=== PATIENT | male | born 1950 | race Caucasian/White ===

== ENCOUNTER 2016-11-08 10:45 | Outpatient (RCR) | payer MEDICARE ==
[~2016-11-08] VITALS: Ht 180.3 cm; Wt 72.6 kg
[~2016-11-08 10:45] MED LIST: Excedrin Migraine tab ORAL PRN
[2016-11-08] MEDS ORDERED: Methohexital Sodium Syr 100mg/10ml IVP ONE (10:46)
[2016-11-08] MEDS ORDERED: NS 550ML IV ONE (10:46)
[2016-11-08] MEDS ORDERED: Succinylcholine 20mg/ml 10ml vial ONE (10:46)
[2016-11-08] MEDS ORDERED: Excedrin Migraine tab ONE (10:46)
== END 2016-11-28 | disposition home or self-care (01) ==
LOC: ECT 10:45
DX: F33.2 Major depressive disorder, recurrent severe without psychotic features (principal); F41.9 Anxiety disorder, unspecified; I48.92 Unspecified atrial flutter; M19.90 Unspecified osteoarthritis, unspecified site
CPT/HCPCS: 90870; J0330; J7040

== ENCOUNTER 2016-12-15 05:04 | Outpatient (RCR) | payer MEDICARE ==
[~2016-12-15] VITALS: Ht 180.3 cm; Wt 72.6 kg
[2016-12-15] MEDS ORDERED: Succinylcholine 20mg/ml 10ml vial ONE (05:05)
[2016-12-15] MEDS ORDERED: NS 550ML IV ONE (05:05)
[2016-12-15] MEDS ORDERED: Excedrin Migraine tab ONE (05:05)
[2016-12-15] MEDS ORDERED: Methohexital Sodium Syr 100mg/10ml IVP ONE (05:05)
[2016-12-15] MEDS ORDERED: Excedrin Migraine tab ORAL PRN (10:11)
== END 2016-12-29 | disposition home or self-care (01) ==
LOC: ECT 05:04
DX: F33.2 Major depressive disorder, recurrent severe without psychotic features (principal); Z88.2 Allergy status to sulfonamides
CPT/HCPCS: 90870; J0330; J7040

== ENCOUNTER 2017-01-22 05:16 | Outpatient (RCR) | payer MEDICARE ==
[~2017-01-22] VITALS: Ht 180.3 cm; Wt 72.6 kg
[2017-01-22] MEDS ORDERED: Excedrin tab (non formulary) ONE (05:17)
[2017-01-22] MEDS ORDERED: Succinylcholine 20mg/ml 10ml vial ONE (05:17)
[2017-01-22] MEDS ORDERED: Methohexital Sodium Syr 100mg/10ml IVP ONE (05:17)
[2017-01-22] MEDS ORDERED: NS 550ML IV ONE (05:17)
[2017-01-22] MEDS ORDERED: Methohexital Sodium 500mg Vial IVP ONE (05:17)
[2017-01-22] MEDS ORDERED: Atropine Sulfate 0.4mg/ml inj IVP PRN (11:13)
[2017-01-22] MEDS ORDERED: Excedrin Migraine tab ORAL PRN (11:13)
== END 2017-01-28 | disposition home or self-care (01) ==
LOC: ECT 05:16
DX: F33.2 Major depressive disorder, recurrent severe without psychotic features (principal); F41.9 Anxiety disorder, unspecified; I48.92 Unspecified atrial flutter; M19.90 Unspecified osteoarthritis, unspecified site
CPT/HCPCS: 90870; J0330; J7040; J3490

== ENCOUNTER 2017-03-02 06:49 | Outpatient (RCR) | payer MEDICARE ==
[~2017-03-02] VITALS: Ht 180.3 cm; Wt 72.6 kg
[2017-03-02] MEDS ORDERED: Excedrin Migraine tab ONE (06:50)
[2017-03-02] MEDS ORDERED: Methohexital Sodium Syr 100mg/10ml IVP ONE (06:50)
[2017-03-02] MEDS ORDERED: Succinylcholine 20mg/ml 10ml vial ONE (06:50)
[2017-03-02] MEDS ORDERED: NS 550ML IV ONE (06:50)
[2017-03-02] MEDS ORDERED: Atropine Sulfate 0.4mg/ml inj IVP PRN (10:15)
== END 2017-03-30 | disposition home or self-care (01) ==
LOC: ECT 06:49
DX: F33.2 Major depressive disorder, recurrent severe without psychotic features (principal); F41.9 Anxiety disorder, unspecified; I48.92 Unspecified atrial flutter; M19.90 Unspecified osteoarthritis, unspecified site
CPT/HCPCS: 90870; J0330; J7040

== ENCOUNTER 2017-04-11 07:46 | Outpatient (RCR) | payer MEDICARE ==
[~2017-04-11] VITALS: Ht 180.3 cm; Wt 72.6 kg
[2017-04-11] MEDS ORDERED: Excedrin Migraine tab ONE (07:47)
[2017-04-11] MEDS ORDERED: Succinylcholine 20mg/ml 10ml vial ONE (07:47)
[2017-04-11] MEDS ORDERED: Methohexital Sodium Syr 100mg/10ml IVP ONE (07:47)
[2017-04-11] MEDS ORDERED: NS 550ML IV ONE (07:47)
[2017-04-11] MEDS ORDERED: Excedrin Migraine tab ORAL PRN (10:32)
== END 2017-04-30 | disposition home or self-care (01) ==
LOC: ECT 07:46
DX: F33.2 Major depressive disorder, recurrent severe without psychotic features (principal)
CPT/HCPCS: 90870; J0330; J7040

== ENCOUNTER 2017-05-21 08:18 | Outpatient (RCR) | payer MEDICARE ==
[~2017-05-21] VITALS: Ht 180.3 cm; Wt 72.6 kg
[2017-05-21] MEDS ORDERED: Succinylcholine 20mg/ml 10ml vial ONE (08:19)
[2017-05-21] MEDS ORDERED: Excedrin Migraine tab ONE (08:19)
[2017-05-21] MEDS ORDERED: NS 550ML IV ONE (08:19)
[2017-05-21] MEDS ORDERED: Methohexital Sodium Syr 100mg/10ml IVP ONE (08:19)
[2017-05-21] MEDS ORDERED: Excedrin Migraine tab ORAL PRN (10:41)
== END 2017-05-31 | disposition home or self-care (01) ==
LOC: ECT 08:18
DX: F33.2 Major depressive disorder, recurrent severe without psychotic features (principal)
CPT/HCPCS: 90870; J0330; J7040

== ENCOUNTER → 2019-12-31 | Outpatient (CLI) | payer MEDICARE | END | disposition home or self-care (01) | LOC: ECT 12:22 | DX: F33.2 Major depressive disorder, recurrent severe without psychotic features (principal); F41.9 Anxiety disorder, unspecified; I12.9 Hypertensive chronic kidney disease with stage 1 through stage 4 chronic kidney disease, or unspecified chronic kidney disease; N18.9 Chronic kidney disease, unspecified; G20 Parkinson's disease; E03.9 Hypothyroidism, unspecified; I70.0 Atherosclerosis of aorta; Z79.82 Long term (current) use of aspirin; Z79.899 Other long term (current) drug therapy ==

== ENCOUNTER 2020-01-14 05:12 | Outpatient (RCR) | payer MEDICARE ==
[~2020-01-14] VITALS: Ht 180.3 cm; Wt 68.0 kg
[2020-01-14] MEDS ORDERED: Methohexital Sodium Syr 100mg/10ml IVP ONE (05:13)
[2020-01-14] MEDS ORDERED: NS 500ML ONE (05:13)
[2020-01-14] MEDS ORDERED: Succinylcholine 20mg/ml 10ml vial ONE (05:13)
[2020-01-14 10:43] VITALS: BP 169/93
[2020-01-14] MEDS ORDERED: Excedrin Migraine tab ORAL PRN (10:55)
[2020-01-14 10:56] VITALS: BP 147/76
[2020-01-14 11:01] VITALS: BP 164/67
[2020-01-14 11:06] VITALS: BP 156/76
[2020-01-14 11:11] VITALS: BP 158/73
[2020-01-14 11:56] VITALS: BP 169/93
== END 2020-01-29 | disposition home or self-care (01) ==
LOC: ECT 05:12
DX: F33.2 Major depressive disorder, recurrent severe without psychotic features (principal); E03.9 Hypothyroidism, unspecified; G20 Parkinson's disease; N40.0 Benign prostatic hyperplasia without lower urinary tract symptoms; I12.9 Hypertensive chronic kidney disease with stage 1 through stage 4 chronic kidney disease, or unspecified chronic kidney disease; N18.3 Chronic kidney disease, stage 3 (moderate); I70.0 Atherosclerosis of aorta; J32.9 Chronic sinusitis, unspecified; L82.1 Other seborrheic keratosis
CPT/HCPCS: 90870; J0330; J7040

== ENCOUNTER 2020-02-25 05:56 | Outpatient (RCR) | payer MEDICARE ==
[~2020-02-25] VITALS: Ht 30.5 cm; Wt 0.5 kg
[2020-02-25] MEDS ORDERED: Succinylcholine 20mg/ml 10ml vial ONE (05:57)
[2020-02-25] MEDS ORDERED: Methohexital Sodium Syr 100mg/10ml IVP ONE (05:57)
[2020-02-25] MEDS ORDERED: NS 500ML ONE (05:57)
[2020-02-25 10:38] VITALS: BP 147/80
[2020-02-25 10:59] VITALS: BP 136/65
[2020-02-25] MEDS ORDERED: Lidocaine 2% 100mg/5ml Carp IV PRN (10:59)
[2020-02-25] MEDS ORDERED: Atropine Sulfate 0.4mg/ml inj IVP PRN (10:59)
[2020-02-25 11:04] VITALS: BP 130/65
[2020-02-25 11:09] VITALS: BP 133/66
[2020-02-25 11:14] VITALS: BP 131/51
== END 2020-02-29 | disposition home or self-care (01) ==
LOC: ECT 05:56
DX: F33.2 Major depressive disorder, recurrent severe without psychotic features (principal)
CPT/HCPCS: 90870; J0330; J7040

== ENCOUNTER 2020-04-05 06:10 | Outpatient (RCR) | payer MEDICARE ==
[~2020-04-05] VITALS: Ht 180.3 cm; Wt 68.0 kg
[~2020-04-05 06:10] MED LIST changes: -Excedrin Migraine tab ORAL PRN; +Methohexital Sodium Syr 100mg/10ml IVP ONE; +NS 500ML ONE; +Succinylcholine 20mg/ml 10ml vial ONE
[2020-04-05] MEDS ORDERED: Succinylcholine 20mg/ml 10ml vial ONE (06:11)
[2020-04-05] MEDS ORDERED: Methohexital Sodium Syr 100mg/10ml IVP ONE (06:11)
[2020-04-05] MEDS ORDERED: NS 500ML ONE (06:11)
[2020-04-05 11:25] VITALS: BP 155/81
[2020-04-05] MEDS ORDERED: Atropine Sulfate 0.4mg/ml inj IVP PRN (11:39)
[2020-04-05] MEDS ORDERED: Lidocaine 2% 100mg/5ml Carp IV PRN (11:39)
[2020-04-05 11:40] VITALS: BP 135/63
[2020-04-05 11:45] VITALS: BP 139/68
[2020-04-05 11:50] VITALS: BP 142/67
[2020-04-05 11:55] VITALS: BP 151/74
[2020-04-19 10:42] VITALS: BP 141/79
[2020-04-19 10:54] VITALS: BP 135/64
[2020-04-19 10:59] VITALS: BP 145/72
[2020-04-19 11:04] VITALS: BP 143/72
[2020-04-19 11:09] VITALS: BP 142/77
== END 2020-04-30 | disposition home or self-care (01) ==
LOC: ECT 06:10
DX: F33.2 Major depressive disorder, recurrent severe without psychotic features (principal)
CPT/HCPCS: 90870; J0330; J7040

== ENCOUNTER 2020-05-03 10:22 | Outpatient (RCR) | payer MEDICARE ==
[2020-05-03] VITALS (7 sets, daily range): BP systolic 131–151; BP diastolic 56–80
[~2020-05-03] VITALS: Ht 30.5 cm; Wt 0.5 kg
[2020-05-03] MEDS ORDERED: NS 500ML ONE (10:23)
[2020-05-03] MEDS ORDERED: Succinylcholine 20mg/ml 10ml vial ONE (10:23)
[2020-05-03] MEDS ORDERED: Methohexital Sodium Syr 100mg/10ml IVP ONE (10:23)
[2020-05-03] MEDS ORDERED: Lidocaine 2% 100mg/5ml Carp IV PRN (10:49)
[2020-05-03] MEDS ORDERED: Atropine Sulfate 0.4mg/ml inj IVP PRN (10:49)
[2020-05-10] VITALS (7 sets, daily range): BP systolic 120–147; BP diastolic 63–80
[2020-05-10] MEDS ORDERED: Succinylcholine 20mg/ml 10ml vial ONE (07:00)
[2020-05-10] MEDS ORDERED: NS 500ML ONE (07:00)
[2020-05-10] MEDS ORDERED: Methohexital Sodium Syr 100mg/10ml IVP ONE (07:00)
[2020-05-10] MEDS ORDERED: Atropine Sulfate 0.4mg/ml inj IVP PRN (10:09)
[2020-05-10] MEDS ORDERED: Lidocaine 2% 100mg/5ml Carp IV PRN (10:09)
[2020-05-24] VITALS (7 sets, daily range): BP systolic 132–153; BP diastolic 60–80
[2020-05-24] MEDS ORDERED: Methohexital Sodium Syr 100mg/10ml IVP ONE (08:00)
[2020-05-24] MEDS ORDERED: Succinylcholine 20mg/ml 10ml vial ONE (08:00)
[2020-05-24] MEDS ORDERED: NS 500ML ONE (08:00)
[2020-05-24] MEDS ORDERED: Atropine Sulfate 0.4mg/ml inj IVP PRN (11:00)
[2020-05-28] VITALS (7 sets, daily range): BP systolic 145–156; BP diastolic 51–81
[2020-05-28] MEDS ORDERED: Methohexital Sodium Syr 100mg/10ml IVP ONE (09:00)
[2020-05-28] MEDS ORDERED: Succinylcholine 20mg/ml 10ml vial ONE (09:00)
[2020-05-28] MEDS ORDERED: NS 500ML ONE (09:00)
== END 2020-05-31 | disposition home or self-care (01) ==
LOC: ECT 10:22
DX: F33.2 Major depressive disorder, recurrent severe without psychotic features (principal)
CPT/HCPCS: 90870; J0330; J7040

== ENCOUNTER 2020-06-02 06:52 | Outpatient (RCR) | payer MEDICARE ==
[2020-06-02] VITALS (7 sets, daily range): BP systolic 135–157; BP diastolic 61–80
[~2020-06-02] VITALS: Ht 180.3 cm; Wt 68.0 kg
[2020-06-02] MEDS ORDERED: Succinylcholine 20mg/ml 10ml vial ONE ×2 (06:53)
[2020-06-02] MEDS ORDERED: NS 500ML ONE ×2 (06:53)
[2020-06-02] MEDS ORDERED: Methohexita Syr 100mg/10ml IVP ONE ×2 (06:53)
[2020-06-09] VITALS (7 sets, daily range): BP systolic 134–151; BP diastolic 62–78
[2020-06-09] MEDS ORDERED: Succinylcholine 20mg/ml 10ml vial ONE (06:00)
[2020-06-09] MEDS ORDERED: NS 500ML ONE (06:00)
[2020-06-09] MEDS ORDERED: Methohexita Syr 100mg/10ml IVP ONE (06:00)
[2020-06-16] VITALS (7 sets, daily range): BP systolic 130–153; BP diastolic 52–86
[2020-06-21] VITALS (7 sets, daily range): BP systolic 138–154; BP diastolic 61–82
[2020-06-21] MEDS ORDERED: Succinylcholine 20mg/ml 10ml vial ONE (06:00)
[2020-06-21] MEDS ORDERED: Methohexita Syr 100mg/10ml IVP ONE (06:00)
[2020-06-21] MEDS ORDERED: NS 500ML ONE (06:00)
[2020-06-21] MEDS ORDERED: Atropine Sulfate 0.4mg/ml inj IVP PRN (11:09)
[2020-06-25] VITALS (7 sets, daily range): BP systolic 149–167; BP diastolic 67–83
[2020-06-25] MEDS ORDERED: Methohexita Syr 100mg/10ml IVP ONE (07:00)
[2020-06-25] MEDS ORDERED: NS 500ML ONE ×2 (07:00→09:00)
[2020-06-25] MEDS ORDERED: Succinylcholine 20mg/ml 10ml vial ONE ×2 (07:00→09:00)
[2020-06-25] MEDS ORDERED: Esmolol 100mg/10ml Inj ONE (09:00)
== END 2020-06-30 | disposition home or self-care (01) ==
LOC: ECT 06:52
DX: F33.2 Major depressive disorder, recurrent severe without psychotic features (principal)
CPT/HCPCS: 90870; J0330; J7040

== ENCOUNTER 2020-07-02 07:39 | Outpatient (RCR) | payer MEDICARE ==
[~2020-07-02] VITALS: Ht 180.3 cm; Wt 68.0 kg
[2020-07-02] VITALS (7 sets, daily range): BP systolic 133–152; BP diastolic 52–81
[2020-07-02] MEDS ORDERED: NS 500ML ONE (07:40)
[2020-07-02] MEDS ORDERED: Methohexital Sodium Syr 100mg/10ml IVP ONE (07:40)
[2020-07-02] MEDS ORDERED: Succinylcholine 20mg/ml 10ml vial ONE (07:40)
[2020-07-16] VITALS (7 sets, daily range): BP systolic 124–152; BP diastolic 59–82
[2020-07-16] MEDS ORDERED: NS 500ML ONE (09:00)
[2020-07-16] MEDS ORDERED: Methohexital Sodium Syr 100mg/10ml IVP ONE (09:00)
[2020-07-16] MEDS ORDERED: Succinylcholine 20mg/ml 10ml vial ONE (09:00)
[2020-07-30] VITALS (7 sets, daily range): BP systolic 127–150; BP diastolic 59–79
[2020-07-30] MEDS ORDERED: Methohexital Sodium Syr 100mg/10ml IVP ONE (07:00)
[2020-07-30] MEDS ORDERED: NS 500ML ONE (07:00)
[2020-07-30] MEDS ORDERED: Succinylcholine 20mg/ml 10ml vial ONE (07:00)
== END 2020-07-31 | disposition home or self-care (01) ==
LOC: ECT 07:39
DX: F33.2 Major depressive disorder, recurrent severe without psychotic features (principal)
CPT/HCPCS: 90870; J0330; J7040

== ENCOUNTER 2020-08-04 05:47 | Outpatient (RCR) | payer MEDICARE ==
[2020-08-04] VITALS (7 sets, daily range): BP systolic 135–152; BP diastolic 69–83
[~2020-08-04] VITALS: Ht 180.3 cm; Wt 68.0 kg
[2020-08-04] MEDS ORDERED: Succinylcholine 20mg/ml 10ml vial ONE (05:48)
[2020-08-04] MEDS ORDERED: Etomidate 40mg/20ml Inj IV ONE (05:48)
[2020-08-04] MEDS ORDERED: NS 500ML ONE (05:48)
[2020-08-04] MEDS ORDERED: Etomidate 40mg/20ml Inj IV SCH (12:07)
[2020-08-09] VITALS (7 sets, daily range): BP systolic 129–158; BP diastolic 60–89
[2020-08-09] MEDS ORDERED: Caffeine Citrate 60mg/3ml vial ONE (06:00)
[2020-08-09] MEDS ORDERED: Succinylcholine 20mg/ml 10ml vial ONE (06:00)
[2020-08-09] MEDS ORDERED: Etomidate 40mg/20ml Inj IV ONE (06:00)
[2020-08-09] MEDS ORDERED: NS 500ML ONE (06:00)
[2020-08-09] MEDS ORDERED: Caffeine Citrate 60mg/3ml vial INJ ONE (11:26)
[2020-08-09] MEDS ORDERED: Etomidate 40mg/20ml Inj IV SCH (11:26)
[2020-08-13] VITALS (7 sets, daily range): BP systolic 137–153; BP diastolic 62–83
[2020-08-13] MEDS ORDERED: Succinylcholine 20mg/ml 10ml vial ONE (09:00)
[2020-08-13] MEDS ORDERED: NS 500ML ONE (09:00)
[2020-08-13] MEDS ORDERED: Caffeine Citrate 60mg/3ml vial ONE (09:00)
[2020-08-13] MEDS ORDERED: Etomidate 40mg/20ml Inj IV ONE (09:00)
[2020-08-20] VITALS (7 sets, daily range): BP systolic 142–153; BP diastolic 63–85
[2020-08-20] MEDS ORDERED: NS 500ML ONE (06:00)
[2020-08-20] MEDS ORDERED: Etomidate 40mg/20ml Inj IV ONE ×2 (06:00→11:22)
[2020-08-20] MEDS ORDERED: Succinylcholine 20mg/ml 10ml vial ONE (06:00)
[2020-08-20] MEDS ORDERED: Caffeine Citrate 60mg/3ml vial ONE (06:00)
[2020-08-20] MEDS ORDERED: Caffeine Citrate 60mg/3ml vial INJ ONE (11:22)
[2020-08-30] VITALS (7 sets, daily range): BP systolic 143–153; BP diastolic 70–77
[2020-08-30] MEDS ORDERED: Succinylcholine 20mg/ml 10ml vial ONE (06:00)
[2020-08-30] MEDS ORDERED: Etomidate 40mg/20ml Inj IV ONE (06:00)
[2020-08-30] MEDS ORDERED: Caffeine Citrate 60mg/3ml vial ONE (06:00)
[2020-08-30] MEDS ORDERED: NS 500ML ONE (06:00)
[2020-08-30] MEDS ORDERED: Atropine Sulfate 0.4mg/ml inj IVP PRN (10:04)
[2020-08-30] MEDS ORDERED: Etomidate 40mg/20ml Inj IV SCH (18:15)
[2020-08-30] MEDS ORDERED: Caffeine Citrate 60mg/3ml vial INJ ONE (20:05)
== END 2020-08-30 | disposition home or self-care (01) ==
LOC: ECT 05:47
DX: F33.2 Major depressive disorder, recurrent severe without psychotic features (principal)
CPT/HCPCS: 90870; J0330; J0706; J7040

== ENCOUNTER 2020-09-13 07:48 | Outpatient (RCR) | payer MEDICARE ==
[2020-08-30 10:30] VITALS: BP 153/74
== END 2020-09-30 | disposition home or self-care (01) ==
LOC: ECT 07:48
DX: Z53.9 Procedure and treatment not carried out, unspecified reason (principal)

== ENCOUNTER 2020-10-06 05:08 | Outpatient (RCR) | payer MEDICARE ==
[~2020-10-06] VITALS: Ht 180.3 cm; Wt 68.0 kg
[2020-10-06] VITALS (7 sets, daily range): BP systolic 125–142; BP diastolic 42–80
[2020-10-06] MEDS ORDERED: Succinylcholine 20mg/ml 10ml vial ONE (05:09)
[2020-10-06] MEDS ORDERED: Etomidate 40mg/20ml Inj IV ONE (05:09)
[2020-10-06] MEDS ORDERED: NS 500ML ONE (05:09)
[2020-10-06] MEDS ORDERED: Caffeine Citrate 60mg/3ml vial ONE (05:09)
[2020-10-22] VITALS (7 sets, daily range): BP systolic 132–156; BP diastolic 62–81
[2020-10-22] MEDS ORDERED: Glycopyrrolate 0.2mg/ml 1ml Vial ONE (06:00)
[2020-10-22] MEDS ORDERED: NS 500ML ONE (06:00)
[2020-10-22] MEDS ORDERED: Succinylcholine 20mg/ml 10ml vial ONE (06:00)
[2020-10-22] MEDS ORDERED: Etomidate 40mg/20ml Inj IV ONE (06:00)
[2020-10-22] MEDS ORDERED: Caffeine Citrate 60mg/3ml vial ONE (06:00)
== END 2020-10-31 | disposition home or self-care (01) ==
LOC: ECT 05:08
DX: F33.2 Major depressive disorder, recurrent severe without psychotic features (principal)
CPT/HCPCS: 90870; J0330; J0706; J7040

== ENCOUNTER 2020-11-17 06:12 | Outpatient (RCR) | payer MEDICARE ==
[2020-11-17] VITALS (7 sets, daily range): BP systolic 138–172; BP diastolic 74–91
[~2020-11-17] VITALS: Ht 180.3 cm; Wt 68.0 kg
[2020-11-17] MEDS ORDERED: NS 500ML ONE (06:13)
[2020-11-17] MEDS ORDERED: Etomidate 40mg/20ml Inj IV ONE (06:13)
[2020-11-17] MEDS ORDERED: Caffeine Citrate 60mg/3ml vial ONE (06:13)
[2020-11-17] MEDS ORDERED: Succinylcholine 20mg/ml 10ml vial ONE (06:13)
== END 2020-11-28 | disposition home or self-care (01) ==
LOC: ECT 06:12
DX: F33.2 Major depressive disorder, recurrent severe without psychotic features (principal)
CPT/HCPCS: 90870; J0330; J0706; J7040